=== PATIENT | female | born 1960 | race Caucasian/White ===

== ENCOUNTER 2023-02-08 10:11 | Emergency (ER) | payer BC, OTHER | END 2023-02-08 11:05 | disposition short-term general hospital (02) | LOC: VM.ED 10:11 | DX: M79.662 Pain in left lower leg (principal); I10 Essential (primary) hypertension; M19.90 Unspecified osteoarthritis, unspecified site; F17.210 Nicotine dependence, cigarettes, uncomplicated; Z79.899 Other long term (current) drug therapy; Z79.82 Long term (current) use of aspirin; Z91.030 Bee allergy status | CPT/HCPCS: 99284 ==